=== PATIENT | female | born 1985 ===

== ENCOUNTER 2017-12-12 01:07 | Emergency (ER) | payer SELFPAY ==
[2017-12-12 01:11] VITALS: BP 130/89
--- NOTE | 2017-12-12 01:11 | ER Report ---
History and Physical Time Seen By MD: 01:10 HPI/ROS CHIEF COMPLAINT: Fall, head injury HISTORY OF PRESENT ILLNESS: 32-year-old female patient was at home in her weight room when she tripped over a dumbbell and fell backwards striking her head on the wall. She apparently had loss of consciousness for 60 seconds according to her daughter. Patient arrives alert and oriented 3. She has no nausea, vomiting or headache. She denies neck pain. She denies any other injuries. REVIEW OF SYSTEMS: Respiratory: No cough, no dyspnea. Cardiovascular: No chest pain, no palpitations. Gastrointestinal: No vomiting, no abdominal pain. Musculoskeletal: No back pain. Allergies: Coded Allergies: Penicillins (Verified Allergy, Mild, HIVES, 12/12/17) Uncoded Allergies: bioxin (Allergy, Intermediate, 12/12/17) swelling of throat and irritation Home Meds No Active Prescriptions or Reported Meds Reviewed Nurses Notes: Yes Old Medical Records Reviewed: Yes Constitutional Vital Sign - Last 24 Hours 12/12/17 01:11 Temp 97.7 Pulse 82 Resp 16 B/P (MAP) 130/89 Pulse Ox 100 O2 Delivery Room Air Physical Exam General Appearance: The patient is alert, has no immediate need for airway protection and no current signs of toxicity. Palpation of the head and neck reveals no tenderness or trauma. HEENT: Pupils equal and round no injection. PERRLA TMs normal, oropharynx without dental trauma, Respiratory: Chest is non tender, lungs are clear to auscultation. Cardiac: regular rate and rhythm Gastrointestinal: Abdomen is soft and non tender, no masses, bowel sounds normal. Musculoskeletal: Neck: Neck is supple and non tender. Extremities have full range of motion and are non tender. Skin: No rashes or lesions. DIFFERENTIAL DIAGNOSIS: After history and physical exam differential diagnosis was considered for head injury including but not limited to concussion, skull fracture, intraparenchymal contusion, subarachnoid, subdural and epidural hematoma. Medical Decision Making ED Course/Re-evaluation ED Course Patient was admitted to an examination room. H&P was done. The differential diagnoses was considered. On clinical examination. Patient has a nonfocal neurologic examination. She has no signs of concussion. She has no nausea or vomiting. Patient was offered a CAT scan, but she declined. Patient advised head injury precautions. Decision to Disposition Date: Dec 12, 2017 Decision to Disposition Time: 01:26 Depart Departure Latest Vital Signs Vital Signs Date Time Temp Pulse Resp B/P (MAP) Pulse Ox O2 Delivery O2 Flow Rate FiO2 12/12/17 01:11 97.7 82 16 130/89 100 Room Air Impression: Primary Impression: Fall Additional Impression: Head injury Condition: Improved Disposition: HOME OR SELF-CARE New Scripts No Active Prescriptions or Reported Meds Patient Instructions: Head Injury (ED) Additional Instructions: Follow-up with your doctors. Problem Qualifiers Primary Impression: Fall Encounter type: initial encounter Qualified Codes: W19.XXXA - Unspecified fall, initial encounter Additional Impression: Head injury Encounter type: initial encounter Qualified Codes: S09.90XA - Unspecified injury of head, initial encounter MONE ALLEN DO Dec 12, 2017 01:11
== END 2017-12-12 01:40 | disposition home or self-care (01) ==
LOC: ER 01:37
DX: S06.9X1A Unspecified intracranial injury with loss of consciousness of 30 minutes or less, initial encounter (principal); W01.198A Fall on same level from slipping, tripping and stumbling with subsequent striking against other object, initial encounter
CPT/HCPCS: 99282